=== PATIENT | female | born 1990 | race Hispanic/Latino ===

== ENCOUNTER 2018-02-24 19:59 | Emergency (ER) | payer BC ==
--- NOTE | 2018-02-24 21:21 | ED PDOC ---
Upper Extremity Pain/Injury Time Seen by Provider: 02/24/18 20:45 Chief Complaint (Nursing): Finger,Hand,&Wrist Chief Complaint (Provider): Left thumb injury History Per: Patient History/Exam Limitations: no limitations Onset/Duration Of Symptoms: Mins (x30 [employer]) Current Symptoms Are (Timing): Still Present Quality: Sharp Severity: Mild Additional Complaint(s): Marlene Johnson is a 27 year old female, with no significant past medical history, who presents to the emergency department complaining of a left thumb injury onset x30 min [employer]. Patient reports she accidentally cut herself with a knife while attempting to cut ice cream. She denies any other injuries or medical complaints. PMD: None provided. Past Medical History Reviewed: Historical Data, Nursing Documentation, Vital Signs Vital Signs: Last Vital Signs Temp 97.9 F 02/24/18 20:22 Pulse 88 02/24/18 20:22 Resp 22 02/24/18 20:22 BP 116/68 02/24/18 20:22 Pulse Ox 97 02/24/18 20:22 - Medical History PMH: No Chronic Diseases - Surgical History Surgical History: No Surg Hx - Family History Family History: States: No Known Family Hx - Home Medications Home Medications: Ambulatory Orders Medication Instructions Recorded Cephalexin [cephalexin] 500 mg PO QID #40 cap 02/24/18 - Allergies Allergies/Adverse Reactions: Allergies Allergy/AdvReac Type Severity Reaction Status Date / Time No Known Allergies Allergy Verified 02/24/18 20:25 Review of Systems ROS Statement: Except As Marked, All Systems Reviewed And Found Negative Musculoskeletal: Positive for: Hand Pain (left thumb injury) Physical Exam - Reviewed Nursing Documentation Reviewed: Yes Vital Signs Reviewed: Yes - Physical Exam Appears: Positive for: Well, Non-toxic, No Acute Distress Head Exam: Positive for: ATRAUMATIC, NORMAL INSPECTION, NORMOCEPHALIC Skin: Positive for: Normal Color, Warm, Dry Eye Exam: Positive for: Normal appearance Extremity: Positive for: Normal ROM (left hand full ROM active and passively), Capillary Refill (<2 sec), Other (Left 1st digit palmar side superficial 1.5cm laceration with no active bleeding. Sensory/Motor intact). Negative for: Deformity, Swelling Neurologic/Psych: Positive for: Alert, Oriented. Negative for: Motor/Sensory Deficits - ECG O2 Sat by Pulse Oximetry: 97 (RA) Pulse Ox Interpretation: Normal Medical Decision Making Medical Decision Making: Initial Impression: left thumb laceration Initial Plan: close wound after soaking in betadyne prep with dermabond Wound closed successfully and pt tolerated well rx abx= keflex x 10days --Reevaluation Scribe Attestation: Documented by Bob Freitas acting as a scribe for Armand Pathak PA-C. MD Scribe Attestation: All medical record entries made by the Scribe were at my direction and personally dictated by me. I have reviewed the chart and agree that the record accurately reflects my personal performance of the history, physical exam, medical decision making, and the department course for this patient. I have also personally directed, reviewed, and agree with the discharge instructions and disposition. Disposition - Clinical Impression Clinical Impression: Laceration - Patient ED Disposition Is Patient to be Admitted: No Doctor Will See Patient In The: Office Counseled Patient/Family Regarding: Diagnosis, Need For Followup, Rx Given - Disposition Disposition: Routine/Home Disposition Time: 22:32 Condition: GOOD Prescriptions: Cephalexin [cephalexin] 500 mg PO QID #40 cap Instructions: Laceration Repair Forms: [facility] (Telugu)
[2018-02-24] MEDS ORDERED: Lidocaine 1% w Epi 1:100,000 Inj ONE (21:32)
[2018-02-24] MEDS: Tdap Vaccine 0.5 ml Vial (10-64 yrs) IM ONE (22:35)
[2018-02-25 11:42] VITALS: BP 116/68; PULSE 88; RESP 22; TEMP 97.9; O2SAT 97
== END 2018-02-24 23:15 | disposition home or self-care (01) ==
LOC: H.ER 19:59
DX: S61.012A Laceration without foreign body of left thumb without damage to nail, initial encounter (principal); W26.0XXA Contact with knife, initial encounter; Y92.89 Other specified places as the place of occurrence of the external cause